=== PATIENT | female | born 1950 | race Caucasian/White ===

== ENCOUNTER 2018-03-23 00:32 | Observation (INO) | payer MEDICARE, BC, OTHER ==
[2018-03-23] MEDS: NITROGLYCERIN (SL) 0.4 MG TAB SL (00:59)
[2018-03-23] MEDS: NITROGLYCERIN 2% 1 GM OINT PKT TD (01:00)
[2018-03-23 01:23] LABS: ADD MAN DIFF? NO
[2018-03-23 01:25] LABS: WHITE BLOOD COUNT 8.3 10^3/ul (4.8-10.8)
[2018-03-23 01:25] LABS: BASOPHIL # 0.1 10^3/ul (0.0-0.1); BASOPHILS % 0.7 % (0.0-2.0); EOSINOPHILS # 0.3 10^3/ul (0.0-0.5); EOSINOPHILS % 3.1 % (0.0-7.0); HEMATOCRIT 39.2 % (37.0-47.0); HEMOGLOBIN 13.1 g/dl (12.0-16.0); LYMPHOCYTES # 4.4 10^3/ul (0.8-2.9); LYMPHOCYTES % 53.4 % (15.0-51.0); MEAN CORPUSCULAR HEMOGLOBIN 30.8 pg (29.0-33.0); MEAN CORPUSCULAR HGB CONC 33.4 g/dl (32.0-37.0); MEAN PLATELET VOLUME 9.8 fl (7.4-10.4); MONOCYTES % 12.2 % (0.0-11.0); NEUTROPHIL # 2.5 10^3/ul (1.6-7.5); NEUTROPHILS % 30.2 % (39.0-77.0); PLATELET COUNT 334 10^3/UL (140-415); RED BLOOD COUNT 4.26 10^6/ul (4.20-5.40); RED CELL DISTRIBUTION WIDTH 12.4 % (11.5-14.5)
[2018-03-23 01:43] LABS: ANION GAP 9 (5-13); BLOOD UREA NITROGEN 12 mg/dl (7-20); CALCIUM 8.8 mg/dl (8.4-10.2); CARBON DIOXIDE 29 mmol/L (21-31); CHLORIDE 101 mmol/L (97-110); CREATININE 0.63 mg/dl (0.44-1.00); Estimated GFR > 60 mL/min (>60); GLUCOSE 113 mg/dl (70-220); POTASSIUM 3.8 mmol/L (3.5-5.1); SODIUM 139 mmol/L (135-144)
[2018-03-23 01:54] LABS: TROPONIN-I < 0.012 ng/ml (0.000-0.120)
[2018-03-23] MEDS ORDERED: ACETAMINOPHEN 325 MG TAB PO ×2 (02:30→06:30)
[2018-03-23] MEDS ORDERED: ONDANSETRON 4 MG INJ IV ×2 (02:30→06:30)
[2018-03-23] MEDS: LORAZEPAM 2 MG INJ IV (06:12)
[2018-03-23] MEDS ORDERED: NACL 0.9% 3 ML SYG IV (06:30)
[2018-03-23] MEDS ORDERED: NITROGLYCERIN (SL) 0.4 MG TAB SL (06:30)
[2018-03-23] MEDS ORDERED: ALBUTEROL/IPRATROPIUM (NEB) 3 ML AMP HHN (06:30)
[2018-03-23 07:38] LABS: CREATINE KINASE 219 IU/L (23-200)
[2018-03-23 07:51] LABS: CK INDEX 1.9; CK-MB 4.27 ng/ml (0.0-2.4); TROPONIN-I < 0.012 ng/ml (0.000-0.120)
[2018-03-23] MEDS: ASPIRIN (EC) 81 MG TAB PO (08:44)
[2018-03-23] MEDS: HYDROCHLOROTHIAZIDE 12.5 MG CAP PO (08:44)
[2018-03-23] MEDS: AMLODIPINE 2.5 MG TAB PO (08:45)
[2018-03-23] MEDS: METOPROLOL 25 MG TAB PO (08:45)
[2018-03-23] MEDS: LORATADINE 10 MG TAB PO (08:45)
[2018-03-23 13:24] LABS: CREATINE KINASE 159 IU/L (23-200)
[2018-03-23 13:36] LABS: CK-MB 3.16 ng/ml (0.0-2.4); TROPONIN-I < 0.012 ng/ml (0.000-0.120)
== END 2018-03-23 15:47 | disposition home or self-care (01) ==
LOC: E/R 00:32 → TEL 02:15
DX: R07.89 Other chest pain (principal); I25.10 Atherosclerotic heart disease of native coronary artery without angina pectoris; Z95.1 Presence of aortocoronary bypass graft; Z79.82 Long term (current) use of aspirin; I16.0 Hypertensive urgency; I10 Essential (primary) hypertension
CPT/HCPCS: 36415; 71045; 80048; 82550; 82553; 84484; 85025; 99217; 99285-25; G0378

== ENCOUNTER 2018-07-01 07:45 | Inpatient (IN) | payer MEDICARE, BC ==
[2018-07-01 08:03] LABS: ADD MAN DIFF? NO
[2018-07-01 08:06] LABS: WHITE BLOOD COUNT 10.5 10^3/ul (4.8-10.8)
[2018-07-01 08:07] LABS: BASOPHIL # 0.1 10^3/ul (0.0-0.1); BASOPHILS % 0.5 % (0.0-2.0); EOSINOPHILS # 0.1 10^3/ul (0.0-0.5); EOSINOPHILS % 0.6 % (0.0-7.0); HEMATOCRIT 42.7 % (37.0-47.0); HEMOGLOBIN 14.7 g/dl (12.0-16.0); LYMPHOCYTES # 3.8 10^3/ul (0.8-2.9); LYMPHOCYTES % 36.5 % (15.0-51.0); MEAN CORPUSCULAR HEMOGLOBIN 30.6 pg (29.0-33.0); MEAN CORPUSCULAR HGB CONC 34.4 g/dl (32.0-37.0); MEAN CORPUSCULAR VOLUME 88.8 fl (82.0-101.0); MEAN PLATELET VOLUME 10.9 fl (7.4-10.4); MONOCYTE # 0.8 10^3/ul (0.3-0.9); MONOCYTES % 7.8 % (0.0-11.0); NEUTROPHIL # 5.7 10^3/ul (1.6-7.5); NEUTROPHILS % 54.2 % (39.0-77.0); PLATELET COUNT 364 10^3/UL (140-415); RED BLOOD COUNT 4.81 10^6/ul (4.20-5.40); RED CELL DISTRIBUTION WIDTH 11.9 % (11.5-14.5)
[2018-07-01] MEDS: SOD CHLORIDE 0.9% 500 ML IV (08:07)
[2018-07-01] MEDS: DILTIAZEM 25 MG INJ IV ×2 (08:07→08:48)
[2018-07-01] MEDS: ASPIRIN 325 MG TAB PO (08:07)
[2018-07-01 08:25] LABS: INR 0.85; PROTIME 11.7 Sec (11.9-14.9); PT RATIO 0.9
[2018-07-01 08:42] LABS: ALANINE AMINOTRANSFERASE 34 IU/L (13-69); ALBUMIN 4.2 g/dl (3.3-4.9); ALKALINE PHOSPHATASE 125 IU/L (42-121); ANION GAP 16 (5-13); ASPARTATE AMINO TRANSFERASE 44 IU/L (15-46); BILIRUBIN,INDIRECT 0.3 mg/dl (0-1.1); BILIRUBIN,TOTAL 0.3 mg/dl (0.2-1.3); BLOOD UREA NITROGEN 13 mg/dl (7-20); CALCIUM 9.1 mg/dl (8.4-10.2); CARBON DIOXIDE 21 mmol/L (21-31); CHLORIDE 98 mmol/L (97-110); CREATININE 0.58 mg/dl (0.44-1.00); Estimated GFR > 60 mL/min (>60); GLUCOSE 287 mg/dl (70-220); LIPASE 154 U/L (23-300); POTASSIUM 4.3 mmol/L (3.5-5.1); SODIUM 135 mmol/L (135-144); TOTAL PROTEIN 8.4 g/dl (6.1-8.1)
[2018-07-01] MEDS: SOD CHLORIDE 0.9% 1,000 ML IV (08:49)
[2018-07-01 08:53] LABS: TROPONIN-I 0.022 ng/ml (0.000-0.120)
[2018-07-01 09:38] LABS: B-TYPE NATRIURETIC PEPTIDE 683 PG/ML (0-125)
[2018-07-01] MEDS ORDERED: NACL 0.9% 3 ML SYG IV (11:30)
[2018-07-01] MEDS ORDERED: DEXTROSE 50% 50 ML SYRINGE IV ×2 (11:30)
[2018-07-01] MEDS ORDERED: ACETAMINOPHEN 325 MG TAB PO (11:30)
[2018-07-01] MEDS ORDERED: DOCUSATE SODIUM 100 MG CAP PO (11:30)
[2018-07-01] MEDS ORDERED: GLUCOSE GEL 15 GRAM TUBE BUCCAL (11:30)
[2018-07-01] MEDS ORDERED: GLUCOSE GEL 15 GRAM TUBE PO ×2 (11:30)
[2018-07-01] MEDS ORDERED: morphine 2 MG INJ IV (11:30)
[2018-07-01] MEDS ORDERED: GLUCAGON 1 MG INJ IM (11:30)
[2018-07-01] MEDS ORDERED: ONDANSETRON 4 MG INJ IV (11:30)
[2018-07-01] MEDS: LORATADINE 10 MG TAB PO (11:39)
[2018-07-01] MEDS: METOPROLOL 25 MG TAB PO ×2 (11:39→19:49)
[2018-07-01] MEDS: AMLODIPINE 2.5 MG TAB PO (11:39)
[2018-07-01] MEDS: INSULIN ASPART [NOVOLOG] 3 ML PEN SC ×3 (11:50→19:59)
[2018-07-01] MEDS: NAPROXEN 500 MG TAB PO (17:55)
[2018-07-01] MEDS: HYDROCHLOROTHIAZIDE 12.5 MG CAP PO (18:05)
[2018-07-01] MEDS: INSULIN GLARGINE [LANTus] (100 UNITS/ML) SYG SC (19:58)
[2018-07-01] MEDS: ZOLPIDEM 5 MG TAB PO (20:02)
[2018-07-01] MEDS: HYDROCODONE/APAP (5/325) TAB PO (20:27)
[2018-07-02] MEDS: ACCU-CHEK XX (02:38)
[2018-07-02] MEDS: INSULIN ASPART [NOVOLOG] 3 ML PEN SC ×5 (03:13→20:08)
[2018-07-02] MEDS: HYDROCHLOROTHIAZIDE 12.5 MG CAP PO ×2 (05:45→17:50)
[2018-07-02 06:24] LABS: ADD MAN DIFF? NO
[2018-07-02 06:33] LABS: ABNORMAL IP MESSAGE 1; BASOPHIL # 0.1 10^3/ul (0.0-0.1); BASOPHILS % 0.6 % (0.0-2.0); EOSINOPHILS # 0.2 10^3/ul (0.0-0.5); EOSINOPHILS % 1.7 % (0.0-7.0); HEMATOCRIT 44.3 % (37.0-47.0); HEMOGLOBIN 14.7 g/dl (12.0-16.0); LYMPHOCYTES # 6.5 10^3/ul (0.8-2.9); MEAN CORPUSCULAR HGB CONC 33.2 g/dl (32.0-37.0); MEAN CORPUSCULAR VOLUME 90.4 fl (82.0-101.0); MEAN PLATELET VOLUME 10.7 fl (7.4-10.4); MONOCYTE # 0.7 10^3/ul (0.3-0.9); NEUTROPHIL # 2.4 10^3/ul (1.6-7.5); NEUTROPHILS % 24.6 % (39.0-77.0); PLATELET COUNT 353 10^3/UL (140-415); RED CELL DISTRIBUTION WIDTH 12.2 % (11.5-14.5)
[2018-07-02 06:33] LABS: WHITE BLOOD COUNT 9.9 10^3/ul (4.8-10.8)
[2018-07-02 06:48] LABS: HEMOGLOBIN A1C 9.9 % (0-5.9)
[2018-07-02 06:51] LABS: POSITIVE DIFF @See below
[2018-07-02 07:28] LABS: ANION GAP 12 (5-13); BLOOD UREA NITROGEN 12 mg/dl (7-20); CALCIUM 9.1 mg/dl (8.4-10.2); CARBON DIOXIDE 26 mmol/L (21-31); CHLORIDE 98 mmol/L (97-110); CREATININE 0.76 mg/dl (0.44-1.00); Estimated GFR > 60 mL/min (>60); GLUCOSE 241 mg/dl (70-220); MAGNESIUM 1.9 mg/dl (1.7-2.5); POTASSIUM 3.7 mmol/L (3.5-5.1); SODIUM 136 mmol/L (135-144)
[2018-07-02] MEDS: LORATADINE 10 MG TAB PO (08:11)
[2018-07-02] MEDS: NAPROXEN 500 MG TAB PO ×2 (08:11→17:50)
[2018-07-02] MEDS: METOPROLOL 25 MG TAB PO ×2 (08:11→20:14)
[2018-07-02] MEDS: ASPIRIN (EC) 81 MG TAB PO (08:11)
[2018-07-02] MEDS: ENOXAPARIN 40 MG/0.4 ML SYG SC (08:14)
[2018-07-02] MEDS: AMLODIPINE 2.5 MG TAB PO (10:01)
[2018-07-02] MEDS: LABETALOL HCL 20MG INJ IV (12:16)
[2018-07-02] MEDS: DIPHENHYDRAMINE 25 MG CAP PO (20:13)
[2018-07-02] MEDS: ATORVASTATIN 20 MG TAB PO (20:13)
[2018-07-02] MEDS: INSULIN GLARGINE [LANTus] (100 UNITS/ML) SYG SC (20:38)
[2018-07-03] MEDS: ACCU-CHEK XX (02:30)
[2018-07-03] MEDS: HYDROCHLOROTHIAZIDE 12.5 MG CAP PO (05:00)
[2018-07-03 07:15] LABS: FREE THYROXINE INDEX (Calc) 3.26 ug/ml (0.65-3.89); T4 (THYROXINE) 10.2 ug/dl (5.5-11.0)
[2018-07-03 07:23] LABS: CHOLESTEROL 227 mg/dl (100-200)
[2018-07-03 07:23] LABS: CHOL/HDL RATIO 6.3 RATIO; HDL CHOLESTEROL 36 mg/dl (33-92); LDL CHOLESTEROL,CALCULATED 156 mg/dl; TRIGLYCERIDES 176 mg/dl (0-149)
[2018-07-03] MEDS: INSULIN ASPART [NOVOLOG] 3 ML PEN SC ×2 (07:46→07:47)
[2018-07-03] MEDS: NAPROXEN 500 MG TAB PO (07:55)
[2018-07-03] MEDS: METOPROLOL 25 MG TAB PO (09:00)
[2018-07-03] MEDS: ASPIRIN (EC) 81 MG TAB PO (09:00)
[2018-07-03] MEDS: LORATADINE 10 MG TAB PO (09:00)
[2018-07-03] MEDS: APIXABAN 5 MG TABLET PO (09:00)
[2018-07-03] MEDS: AMLODIPINE 2.5 MG TAB PO (09:00)
[2018-07-03 09:43] LABS: TROPONIN-I 0.091 ng/ml (0.000-0.120)
[2018-07-03] MEDS ORDERED: LINAGLIPTIN 5 MG TABLET PO (11:00)
[2018-07-03] MEDS: REGADENOSON 0.4 MG/5 ML SYG (13:51)
[2018-07-03] MEDS ORDERED: INSULIN GLARGINE [LANTus] (100 UNITS/ML) SYG SC (20:00)
== END 2018-07-03 16:00 | disposition home or self-care (01) | DRG 310 ==
LOC: E/R 07:45 → TEL 09:00
DX: I48.0 Paroxysmal atrial fibrillation (principal); E11.65 Type 2 diabetes mellitus with hyperglycemia; I10 Essential (primary) hypertension; Z68.34 Body mass index [BMI] 34.0-34.9, adult; E78.00 Pure hypercholesterolemia, unspecified; R07.9 Chest pain, unspecified; Z95.1 Presence of aortocoronary bypass graft
CPT/HCPCS: 36415; 71045; 78452; 80048; 80053; 80061; 82962; 83036; 83690; 83735; 83880; 84100; 84436; 84479; 84484; 85025; 85610; 85730; 93005; 93017; 96374; 96376; 99291-25